=== PATIENT | female | born 1975 | race Caucasian/White ===

== ENCOUNTER 2021-07-05 08:04 | Day surgery (SDC) | payer OTHER ==
[2021-07-05] MEDS ORDERED: DIPRIVAN 200 MG/20 ML IV ONE (08:05)
[2021-07-05] MEDS ORDERED: LIDOCAINE HCL 2% 100 MG/5 ML IJ ONE (08:05)
[2021-07-05] MEDS ORDERED: Decadron 4 MG INJ IV ONE (08:05)
[2021-07-05] MEDS ORDERED: Lactated Ringers 1,000 ML IV ONE (10:16)
--- NOTE | 2021-07-05 10:42 | XRAY ---
Indication: Left C3-C5 MBB. Intraoperative fluoroscopy provided for 24 seconds. 2 digital spot image submitted for interpretation demonstrates posterior needle tips projecting over the expected left C3-C5 nerve roots. Correlate with intraoperative findings/report.
--- NOTE | 2021-07-05 12:02 | XRAY ---
24 seconds fluoroscopy time in surgery for left C3-C5 MBB.
== END 2021-07-05 10:05 | disposition home or self-care (01) ==
LOC: SDC-PAIN 08:04
PROVIDERS: ATTEND Psychiatry & Neurology Pain Medicine
DX: M47.812 Spondylosis without myelopathy or radiculopathy, cervical region (principal); G43.909 Migraine, unspecified, not intractable, without status migrainosus; Z79.899 Other long term (current) drug therapy
CPT/HCPCS: 64490; 64491; 64492; 72040; 77002; 84703; J1100; J2704

== ENCOUNTER 2023-10-23 10:22 | Day surgery (SDC) | payer BC ==
[2023-10-23] MEDS ORDERED: Decadron 4 MG INJ IV ONE (10:23)
[2023-10-23] MEDS ORDERED: BUPIVACAINE 0.5% VIAL IJ ONE (10:23)
[2023-10-23 10:40] LABS: HCG URINE TEST NEGATIVE (NEGATIVE)
[2023-10-23] MEDS ORDERED: Versed 2 MG/2 ML Injection ONE (11:02)
[2023-10-23] MEDS ORDERED: DIPRIVAN 200 MG/20 ML IV ONE (12:18)
[2023-10-23] MEDS ORDERED: Lactated Ringers 1,000 ML IV ONE (12:45)
--- NOTE | 2023-10-23 13:06 | XRAY ---
Indication: Left C3-C5 MBB. Intraoperative fluoroscopy provided for 13 seconds. 2 digital spot image submitted for interpretation demonstrates posterior needle tips projecting over the expected left C3-C5 nerve roots. Correlate with intraoperative findings/report.
--- NOTE | 2023-10-23 14:06 | XRAY ---
13 seconds of fluoroscopy was used in surgery for a left C3-C5 MBB.
== END 2023-10-23 12:39 | disposition home or self-care (01) ==
LOC: SDC-PAIN 10:22
PROVIDERS: ATTEND Psychiatry & Neurology Pain Medicine
DX: M47.812 Spondylosis without myelopathy or radiculopathy, cervical region (principal)
CPT/HCPCS: 64479; 64480; 72040; 77002; 81025; J1100; J2250; J2704

== ENCOUNTER 2024-03-04 10:06 | Day surgery (SDC) | payer BC ==
[2024-03-04] MEDS ORDERED: BUPIVACAINE 0.5% VIAL IJ ONE (10:07)
[2024-03-04] MEDS ORDERED: LIDOCAINE HCL 1% 50 MG/5 ML VL PF IJ ONE (10:07)
[2024-03-04] MEDS ORDERED: Decadron 4 MG INJ IV ONE (10:07)
[2024-03-04 11:16] LABS: HCG URINE TEST NEGATIVE (NEGATIVE)
[2024-03-04] MEDS ORDERED: Versed 2 MG/2 ML Injection ONE (11:46)
[2024-03-04] MEDS ORDERED: DIPRIVAN 200 MG/20 ML IV ONE (12:52)
--- NOTE | 2024-03-04 13:23 | XRAY ---
Indication: Left C3-C5 RFA. Intraoperative fluoroscopy provided for 25 seconds. 3 digital spot images submitted for interpretation demonstrates posterior needle tips projecting over the expected left C3-C5 nerve roots. Correlate with intraoperative findings/report.
--- NOTE | 2024-03-04 13:40 | XRAY ---
25 seconds of fluoroscopy was used in surgery for a left C3-C5 RFA.
[2024-03-04] MEDS ORDERED: Lactated Ringers 1,000 ML IV ONE (15:01)
== END 2024-03-04 13:20 ==
LOC: SDC-PAIN 10:06
PROVIDERS: ATTEND Psychiatry & Neurology Pain Medicine
DX: M47.812 Spondylosis without myelopathy or radiculopathy, cervical region (principal)
CPT/HCPCS: 64633; 64634; 72040; 77002; 81025; J1100; J2001; J2250; J2704